=== PATIENT | female | born 1955 | race Caucasian/White ===

== ENCOUNTER → 2022-08-14 | Outpatient (CLI) | payer MEDICARE, OTHER ==
--- NOTE | 2022-08-14 19:01 | Diagnostic Imaging Report ---
INDICATION: PAIN OF BILATERAL KNEE JOINTS. COMPARISON: 06/19/2022. FINDINGS: Multiple radiographic views of the bilateral knees were obtained. Small suprapatellar joint effusions are suspected bilaterally. No unexpected radiopaque foreign bodies are seen. Osseous structures are intact. There is no acute fracture. There is mild asymmetric narrowing of the medial tibiofemoral compartment with small osteophyte formations, bilaterally. Otherwise, joint spaces are maintained. IMPRESSION: 1. No acute fracture or dislocation of either knee. 2. Probable small bilateral joint effusions. 3. Mild osteoarthritic changes. Dictated by: Dictated on workstation # [id number]
== END ==
LOC: ORTHO 10:45
PROVIDERS: ATTEND Orthopaedic Surgery
DX: M17.0 Bilateral primary osteoarthritis of knee (principal)
CPT/HCPCS: 73564; G0463; 99213

== ENCOUNTER → 2022-08-14 | Outpatient (CLI) | payer MEDICARE, OTHER | LOC: ORTHO 11:00 | PROVIDERS: ATTEND Orthopaedic Surgery | DX: M25.511 Pain in right shoulder (principal); J44.9 Chronic obstructive pulmonary disease, unspecified; I10 Essential (primary) hypertension ==

== ENCOUNTER → 2022-09-20 | Outpatient (CLI) | payer MEDICARE, OTHER | LOC: ORTHO 12:00 → MERGE 16:16 | PROVIDERS: ATTEND Orthopaedic Surgery | DX: M25.511 Pain in right shoulder (principal) | CPT/HCPCS: 20610 ==

== ENCOUNTER → 2022-10-23 | Outpatient (CLI) | payer MEDICARE, OTHER | LOC: ORTHO 14:27 | PROVIDERS: ATTEND Orthopaedic Surgery | DX: M17.0 Bilateral primary osteoarthritis of knee (principal) ==

== ENCOUNTER → 2023-02-26 | Outpatient (CLI) | payer MEDICARE, OTHER | LOC: ORTHO 08:32 | PROVIDERS: ATTEND Orthopaedic Surgery | DX: M17.0 Bilateral primary osteoarthritis of knee (principal) ==

== ENCOUNTER → 2023-09-26 | Outpatient (CLI) | payer MEDICARE, OTHER | LOC: ORTHO 08:48 | PROVIDERS: ATTEND Orthopaedic Surgery | DX: M17.11 Unilateral primary osteoarthritis, right knee (principal); M25.511 Pain in right shoulder | CPT/HCPCS: 20610; G0463; 99213 ==